=== PATIENT | female | born 1935 | race Caucasian/White ===

== ENCOUNTER 2018-11-20 19:02 | Emergency (ER) | payer OTHER, MEDICAID ==
[~2018-11-20] VITALS: Ht 165.1 cm; Wt 68.0 kg
--- NOTE | 2018-11-20 19:02 | NUR ---
PT [facility] BLS. TAKEN TO BED 3
[2018-11-20 19:06] VITALS: BP 145/67
--- NOTE | 2018-11-20 19:21 | NUR ---
Dr. Chaudhari examining patient.
--- NOTE | 2018-11-20 19:27 | NUR ---
HERE WITH A CHIEF COMPLAINT OF GENERALIZED ITCHING,RASH,FLUSHED SKIN AFTER TAKING NIACIN. SEEN AT [facility] FOR THE SAME REASON YESTERDAY.
[2018-11-20 20:20] VITALS: BP 151/64
--- NOTE | 2018-11-20 20:20 | NUR ---
Discharge papers given to pt. No SOB/Dypsnea. No redness. No anxiety. Discharged with vss. Instructed to f/u with PCP and when to return to ER. Pt verballized bundersanding of DC instructions. All questions answered.
== END 2018-11-20 20:20 | disposition home or self-care (01) ==
LOC: MED 19:02
DX: L25.8 Unspecified contact dermatitis due to other agents (principal); T46.7X5A Adverse effect of peripheral vasodilators, initial encounter; F41.9 Anxiety disorder, unspecified; Z90.89 Acquired absence of other organs; Z90.49 Acquired absence of other specified parts of digestive tract; Z90.710 Acquired absence of both cervix and uterus; Z95.0 Presence of cardiac pacemaker; Z88.1 Allergy status to other antibiotic agents; Z86.79 Personal history of other diseases of the circulatory system; Y92.89 Other specified places as the place of occurrence of the external cause
CPT/HCPCS: 99283

== ENCOUNTER 2018-11-23 12:09 | Emergency (ER) | payer OTHER, MEDICAID ==
[~2018-11-23] VITALS: Ht 165.1 cm; Wt 74.8 kg
--- NOTE | 2018-11-23 12:09 | NUR ---
Patient ambulated to bed 4. RN evaluating patient at bedside.
[2018-11-23 12:12] VITALS: BP 151/73
[2018-11-23] MEDS ORDERED: DILT120C91 PO (12:19)
--- NOTE | 2018-11-23 12:19 | NUR ---
83/F BIB SELF C/O FLUSHED AND GENERALIZED PRURITUS--EXACERBATED TODAY.MED HX: MCI, HTN, CVA, CHF, A-FIB, HYPERLIPIDEMIA, APPENDECTOMY, CHOLECYSTECTOMY,PACE MACKER. PATIENT STATES PAIN OF 0/10 AT THIS TIME. PATIENT POSITIONED FOR COMFORT; HOB ELEVATED; BEDRAILS UP X1; BED DOWN. ER MD MADE AWARE OF PT STATUS.
[2018-11-23] MEDS ORDERED: METO25TA PO (12:22)
[2018-11-23] MEDS ORDERED: WARF-18 PO (12:22)
[2018-11-23] MEDS ORDERED: DIGO0.122 PO (12:22)
--- NOTE | 2018-11-23 12:23 | NUR ---
Dr. Norton evaluating patient at bedside.
--- NOTE | 2018-11-23 13:01 | NUR ---
STOP USING NIACIN Patient discharged with v/s stable. Written and verbal after care instructions given and explained. Patient verbalized understanding. Ambulatory with steady gait. All questions addressed prior to discharge. Advised to follow up with PMD.
[2018-11-23 13:03] VITALS: BP 145/71
--- NOTE | 2018-11-23 13:03 | NUR ---
JAH [phone] WAS CALLED TO RETAIL SALES CLERK PT REQUESTED
== END 2018-11-23 13:05 | disposition home or self-care (01) ==
LOC: MED 12:09
DX: L53.9 Erythematous condition, unspecified (principal); I10 Essential (primary) hypertension; Z86.73 Personal history of transient ischemic attack (TIA), and cerebral infarction without residual deficits; Z95.0 Presence of cardiac pacemaker; Z88.2 Allergy status to sulfonamides; Z88.8 Allergy status to other drugs, medicaments and biological substances; Z79.899 Other long term (current) drug therapy; Z90.710 Acquired absence of both cervix and uterus; Z90.49 Acquired absence of other specified parts of digestive tract
CPT/HCPCS: 99283

== ENCOUNTER 2019-02-27 22:22 | Emergency (ER) | payer OTHER, MEDICAID ==
[~2019-02-27] VITALS: Ht 165.1 cm; Wt 70.3 kg
[~2019-02-27 22:22] MED LIST: DIGO0.122 PO; DILT120C91 PO; METO25TA PO; WARF-18 PO
--- NOTE | 2019-02-27 22:22 | NUR ---
PT AMBULATED TO LOBBY WITH VSS.
[2019-02-27 22:26] VITALS: BP 132/72
[2019-02-27] MEDS ORDERED: CALC-1018 PO (22:34)
[2019-02-27] MEDS ORDERED: APIX5TAB PO (22:35)
[2019-02-27] MEDS ORDERED: FLAX10002 PO (22:37)
[2019-02-27] MEDS ORDERED: FURO-572 PO (22:38)
[2019-02-27] MEDS ORDERED: IRBE300T56 PO (22:41)
[2019-02-27] MEDS ORDERED: [UNRECOGNIZED DRUG - CODE] PO (22:42)
--- NOTE | 2019-02-27 23:00 | NUR ---
Nhan hastings in ED - 02/27/19 at 2303 by [email or web address] PT AMBULATED TO BED 06
--- NOTE | 2019-02-27 23:02 | NUR ---
PT TAKEN TO BED 6
--- NOTE | 2019-02-27 23:12 | NUR ---
AMBULATES TO WITH STEADY GAIT IN UPRIGHT POSITION.
--- NOTE | 2019-02-27 23:30 | NUR ---
CHANGED PT INTO GOWN, PLACED ON MONITOR. PT HAS PACEMAKER AT 60 BPM. RESTING COMFORTABLY IN BED WITH VSS.
--- NOTE | 2019-02-27 23:52 | NUR ---
Dr. Cordero examining patient.
--- NOTE | 2019-02-27 23:52 | NUR ---
DR. COLORADO EVALUATING.
--- NOTE | 2019-02-28 | NUR ---
ATTEMPTED TO CALL [facility], NO ANSWER
[2019-02-28 00:56] LABS: BASOPHILS # (AUTO) 0.1 K/uL (0.00-0.22); BASOPHILS % (AUTO) 0.6 % (0.0-2.0); EOSINOPHILS # (AUTO) 0.2 K/uL (0-0.4); EOSINOPHILS % (AUTO) 1.7 % (0.0-4.0); HEMATOCRIT 46.1 % (36-48); HEMOGLOBIN 14.9 g/dL (12.0-16.0); LYMPHOCYTES # (AUTO) 1.4 K/uL (2.5-16.5); LYMPHOCYTES % (AUTO) 14.6 % (20.5-51.1); MEAN CORPUSCULAR HEMOGLOBIN 29 pg (27-31); MEAN CORPUSCULAR HGB CONC 32 g/dL (33-37); MEAN CORPUSCULAR VOLUME 88.7 fL (80-94); MONOCYTES # (AUTO) 0.5 K/uL (0.8-1.0); MONOCYTES % (AUTO) 5.8 % (1.7-9.3); NEUTROPHILS # (AUTO) 7.1 K/uL (1.8-7.7); NEUTROPHILS % (AUTO) 77.3 % (42.2-75.2); PLATELET COUNT (AUTO) 249 K/uL (140-450); RED CELL DISTRIBUTION WIDTH 15.5 % (11.6-13.7); WHITE BLOOD COUNT (AUTO) 9.2 K/uL (4.8-10.8)
--- NOTE | 2019-02-28 00:56 | NUR ---
XRAY AT BEDSIDE.
[2019-02-28 01:05] LABS: ANION GAP 11.7 (8-16); CARBON DIOXIDE 29.6 mmol/L (21-32); CHLORIDE 105 mmol/L (98-107); CREATININE 1.1 mg/dL (0.6-1.3); GLUCOSE 139 mg/dL (74-106); POTASSIUM 4.3 mmol/L (3.5-5.1); SODIUM SERUM 142 mmol/L (136-145); UREA NITROGEN, BLOOD 24 mg/dL (7-18)
[2019-02-28 01:12] LABS: ALBUMIN 3.3 g/dL (3.4-5.0); ASPARTATE AMINOTRANSFERASE 22 U/L (15-37); LIPASE 166 U/L (73-393); TOTAL BILIRUBIN 0.3 mg/dL (0.0-1.0)
--- NOTE | 2019-02-28 01:30 | NUR ---
PT RESTING COMFORTABLY WITH VSS. NO COMPLAINTS AT THIS TIME OTHER THAN FREQUENT BOWEL MOVEMENTS. DR. COLORADO MADE AWARE.
--- NOTE | 2019-02-28 01:30 | NUR ---
PT RESTING QUIETLY IN BED. HAS HAD TO USE RR SEVERAL TIMES. CONTINUES TO DENY PAIN/DISCOMFORT. NO COMPLAINTS AT THIS TIME.
--- NOTE | 2019-02-28 02:30 | NUR ---
STOOL COLLECTED AND SENT TO LAB.
[2019-02-28] MEDS ORDERED: metroNIDAZOLE 250 MG TAB PO ONE (03:00)
--- NOTE | 2019-02-28 03:02 | NUR ---
DR. COLORADO REEVALUATING.
--- NOTE | 2019-02-28 03:38 | NUR ---
SITTING COMFORTABLY IN CHAIR BY BED. BREATHING EVEN, UNLABORED. VSS. NO COMPLAINTS AT THIS TIME.
[2019-02-28 04:20] VITALS: BP 132/87
--- NOTE | 2019-02-28 04:23 | NUR ---
Patient discharged with v/s stable. Written and verbal after care instructions given and explained. Patient alert, oriented and verbalized understanding of instructions. Ambulatory with steady gait. All questions addressed prior to discharge. ID band removed. Patient advised to follow up with PMD. Rx of Flagyl given. Patient educated on indication of medication including possible reaction and side effects. Opportunity to ask questions provided and answered. Juice has been called for pt to return to [facility].
== END 2019-02-28 04:23 | disposition home or self-care (01) ==
LOC: MED 22:22
DX: A09 Infectious gastroenteritis and colitis, unspecified (principal); I10 Essential (primary) hypertension; Z95.0 Presence of cardiac pacemaker; Z86.73 Personal history of transient ischemic attack (TIA), and cerebral infarction without residual deficits; Z79.899 Other long term (current) drug therapy; Z88.2 Allergy status to sulfonamides; Z88.8 Allergy status to other drugs, medicaments and biological substances
CPT/HCPCS: 36415; 74018; 80053; 81002; 82272; 83690; 85025; 87045; 87070; 87427; 89055; 99284; Q0092

== ENCOUNTER 2022-05-22 14:27 | Inpatient (IN) | payer OTHER, MEDICAID ==
[~2022-05-22] VITALS: Ht 165.1 cm; Wt 70.3 kg
[~2022-05-22 14:27] MED LIST changes: +APIX5TAB PO; +CALC-1018 PO; +FLAX10002 PO; +FURO-572 PO; +IRBE300T26 PO; -WARF-18 PO; +[UNRECOGNIZED DRUG - CODE] PO
[2022-05-22 14:30] VITALS: BP 142/76
--- NOTE | 2022-05-22 14:36 | NUR ---
BIBA TO BED 10
[2022-05-22] MEDS ORDERED: ACETAMINOPHEN EXTRA STRENGTH 500 MG TAB PO ONE (14:40)
--- NOTE | 2022-05-22 14:53 | NUR ---
PT TAKEN TO CT VIA DONN
--- NOTE | 2022-05-22 15:07 | NUR ---
PT BROUGHT BACK VIA DONN
[2022-05-22 15:12] LABS: BASOPHILS % (AUTO) 0.7 % (0.0-2.0); EOSINOPHILS # (AUTO) 0.1 K/uL (0-0.4); EOSINOPHILS % (AUTO) 2.5 % (0.0-4.0); HEMATOCRIT 40.4 % (36-48); HEMOGLOBIN 13.2 g/dL (12.0-16.0); LYMPHOCYTES # (AUTO) 0.9 K/uL (2.5-16.5); LYMPHOCYTES % (AUTO) 19.8 % (20.5-51.1); MEAN CORPUSCULAR HEMOGLOBIN 30 pg (27-31); MEAN CORPUSCULAR HGB CONC 33 g/dL (33-37); MEAN CORPUSCULAR VOLUME 91.1 fL (80-94); MONOCYTES # (AUTO) 0.3 K/uL (0.8-1.0); MONOCYTES % (AUTO) 6.8 % (1.7-9.3); NEUTROPHILS # (AUTO) 3.3 K/uL (1.8-7.7); NEUTROPHILS % (AUTO) 70.2 % (42.2-75.2); PLATELET COUNT (AUTO) 203 K/uL (140-450); RED BLOOD CELL COUNT(AUTO) 4.44 MIL/uL (4.20-5.40); RED CELL DISTRIBUTION WIDTH 16.5 % (11.6-13.7); WHITE BLOOD COUNT (AUTO) 4.7 K/uL (4.8-10.8)
--- NOTE | 2022-05-22 15:15 | NUR ---
86/F LORENE FROM [facility] C/O DIZZINESS AND LIGHT HEADACHE ONSET TODAY. DENIES FALL OR INJURY TO HEAD. DENIES NVD. AAO4, AMBULATORY, VITALS STABLE. PMH: HTN, CHF, A FIB, HLD, PACE MAKER
[2022-05-22 15:44] LABS: APPEARANCE,URINE CLEAR (CLEAR); BILIRUBIN,URINE NEGATIVE (NEGATIVE); BLOOD, URINE NEGATIVE (NEGATIVE); COLOR,URINE YELLOW (YELLOW); LEUKOCYTE ESTERASE ,URINE NEGATIVE (NEGATIVE); NITRITE, URINE NEGATIVE (NEGATIVE); UGLUCOSE NEGATIVE (NEGATIVE)
[2022-05-22 16:07] LABS: ALBUMIN 3.2 g/dL (3.4-5.0); ANION GAP 8.1 (8-16); ASPARTATE AMINOTRANSFERASE 25 U/L (15-37); CARBON DIOXIDE 35.1 mmol/L (21-32); CHLORIDE 105 mmol/L (98-107); CREATININE 1.3 mg/dL (0.6-1.3); GLUCOSE 139 mg/dL (74-106); MAGNESIUM 1.8 mg/dL (1.8-2.4); POTASSIUM 3.2 mmol/L (3.5-5.1); SODIUM SERUM 145 mmol/L (136-145); TOTAL BILIRUBIN 0.4 mg/dL (0.0-1.0); UREA NITROGEN, BLOOD 23 mg/dL (7-18)
--- NOTE | 2022-05-22 16:55 | NUR ---
RANDELL COLLECTED AND SENT TO LAB
--- NOTE | 2022-05-22 19:10 | NUR ---
CALLED [facility] FOR PT'S MED LIST BUT FACILITY NOT ANSWERING. NO MED LIST PROVIDED UPON PT ARRIVAL TO ER.
--- NOTE | 2022-05-22 19:20 | NUR ---
GAVE REPORT TO JORGE HIGGINS.
[2022-05-22 19:36] LABS: ANION GAP 10.1 (8-16); CARBON DIOXIDE 33.4 mmol/L (21-32); CHLORIDE 104 mmol/L (98-107); CREATININE 1.2 mg/dL (0.6-1.3); GLUCOSE 104 mg/dL (74-106); POTASSIUM 3.5 mmol/L (3.5-5.1); SODIUM SERUM 144 mmol/L (136-145); UREA NITROGEN, BLOOD 22 mg/dL (7-18)
--- NOTE | 2022-05-22 20:40 | NUR ---
Patient will be admitted to care of Telemetry Nurse Maryam. Admited to Telemetry. Will go to room 126B. Belongings list completed. Report given to Telemetry Nurse Maryam. Telemetry Nurse Maryam verbalized understanding of report, no further questions.
--- NOTE | 2022-05-22 21:30 | NUR ---
PT RECEIVED FROM ED A/OX3 ABLE TO MAKE NEEDS KNOWN DENIES PAIN AMBULATED TO BR ORIENTED TO ROOM AND PLAN OF CARE CALL LIGHT IN REACH WILL CONTINUE TO MONITOR AND ASSESS
--- NOTE | 2022-05-22 23:23 | NUR ---
TROPONIN 80 AMD TRENDING DOWN NO COMPLAINTS OF CHEST PAIN
[2022-05-23] VITALS: BP 117/83
[2022-05-23 04:00] VITALS: BP 140/77
[2022-05-23 05:48] LABS: BASOPHILS % (AUTO) 0.6 % (0.0-2.0); EOSINOPHILS # (AUTO) 0.2 K/uL (0-0.4); HEMATOCRIT 37.8 % (36-48); HEMOGLOBIN 12.4 g/dL (12.0-16.0); LYMPHOCYTES # (AUTO) 1.3 K/uL (2.5-16.5); LYMPHOCYTES % (AUTO) 25.2 % (20.5-51.1); MEAN CORPUSCULAR HEMOGLOBIN 30 pg (27-31); MEAN CORPUSCULAR HGB CONC 33 g/dL (33-37); MEAN CORPUSCULAR VOLUME 91.5 fL (80-94); MONOCYTES # (AUTO) 0.5 K/uL (0.8-1.0); MONOCYTES % (AUTO) 9.3 % (1.7-9.3); NEUTROPHILS # (AUTO) 3.1 K/uL (1.8-7.7); NEUTROPHILS % (AUTO) 61.9 % (42.2-75.2); PLATELET COUNT (AUTO) 183 K/uL (140-450); RED BLOOD CELL COUNT(AUTO) 4.14 MIL/uL (4.20-5.40); RED CELL DISTRIBUTION WIDTH 16.5 % (11.6-13.7); WHITE BLOOD COUNT (AUTO) 5.1 K/uL (4.8-10.8)
--- NOTE | 2022-05-23 07:30 | NUR ---
RECEIVED REPORT FROM NIGHTSHIFT NURSE. PT A/O X2. REMINDED PT THAT PT IS IN THE HOSPITAL. NO SOB OR RESPIRATORY DISTRESS. ON RA. DENIES CHEST PAIN. TELE, PACED. CARDIAC DIET. RAC #20 SL. NEEDS ALL MET AT THIS TIME. ALL SAFETY MEASURES IN PLACE.
[2022-05-23 08:00] VITALS: BP 164/83
--- NOTE | 2022-05-23 08:50 | NUR ---
PATIENT HAS BEEN SCREENED AND CATEGORIZED MODERATE NUTRITION RISK. PATIENT WILL BE SEEN WITHIN 3-5 DAYS OF ADMISSION. REVIEWED BY SHAYY MCCAULEY RD
[2022-05-23] MEDS ORDERED: ACETAMINOPHEN 325 MG TAB PO PRN (09:10)
[2022-05-23] MEDS ORDERED: MAG SULF 2000 MG/WATER PREMIX 50 ML IV PRN (09:10)
[2022-05-23] MEDS ORDERED: NITROGLYCERIN 0.4 MG TAB SL PRN (09:10)
[2022-05-23] MEDS ORDERED: POTASSIUM CHLORIDE 10 MEQ TABER PO PRN (09:10)
[2022-05-23] MEDS ORDERED: HYDROcodone/APAP 7.5/325 MG 1 TAB PO PRN (09:10)
[2022-05-23] MEDS ORDERED: ONDANSETRON 4 MG/2 ML VIAL IVP PRN (09:10)
[2022-05-23 12:00] VITALS: BP 156/89
[2022-05-23 12:14] LABS: PROTHROMBIN TIME 10.7 secs (10.8-13.4)
[2022-05-23 12:42] LABS: CHOL/HDL RATIO 2.4 (1-4.5); THYROID STIMULATING HORMONE 1.78 uIU/mL (0.34-3.74)
--- NOTE | 2022-05-23 15:03 | NUR ---
DC PLANNING ASSESSMENT COMPLETE SEE ASSESSMENT FOR DETAILS TREMAINE REPORTS TENTATIVE DC PLAN IS FOR PT TO RETURN TO MR WHEN MEDICALLY STABLE LONG PT DOES NOT REQUIRE MEDICAL NEEDS THAT CAN NOT BE ACCOMMODATED AT FACILITY. Addendum: 05/23/22 at 1504 by Eugenio Carrillo SS Amended: Links added.
[2022-05-23 16:00] VITALS: BP 152/97
--- NOTE | 2022-05-23 18:30 | NUR ---
PT GETTING OUT OF ROOM. REDIRECTED PT TO ROOM. REMINDED PT AGAIN PT IS AT [facility]. NO SOB OR RESPIRATORY DISTRESS. ON RA. PROVIDED WARM BLANKET TO PT. ALL NEEDS MET. ALL SAFETY MEASURES IN PLACE.
--- NOTE | 2022-05-23 19:03 | NUR ---
BEDSIDE REPORT GIVEN TO NIGHTSHIFT NURSETOÑO FOR CONTINUITY OF CARE.
--- NOTE | 2022-05-23 19:04 | NUR ---
RECEIVED REPORT FROM DAY SHIFT NURSE NADINE FOR CONTINUITY OF CARE. PT AWAKE, SITTING AT BEDSIDE CHAIR. RESPIRATIONS EVEN AND UNLABORED ON RA. ON SUPERVISOR HOME RESTORATION SERVICE. NO IV IN PLACE, WILL ATTEMPT TO INSERT NEW IV LINE. INITIAL ASSESSMENT DONE. POC DISCUSSED WITH PT AND GISELA FOY. CALL LIGHT WITHIN REACH. SAFETY PRECAUTIONS IN PLACE.
[2022-05-23 20:00] VITALS: BP 152/77
--- NOTE | 2022-05-23 20:00 | NUR ---
Patient's Plan of Care was discussed and reviewed with CUSTOMER SUPPLY CHAIN ANALYST: Chris Max
[2022-05-23] MEDS: DOCUSATE SODIUM 100 MG GELCAP PO SCH (20:26)
[2022-05-23] MEDS: APIXABAN 2.5 MG TAB PO SCH (20:28)
--- NOTE | 2022-05-23 20:33 | NUR ---
ADMINISTERED DUE MEDS. PT TOLERATED WELL.
[2022-05-23] MEDS ORDERED: METOPROLOL 25 MG TAB PO SCH (21:00)
--- NOTE | 2022-05-23 22:55 | NUR ---
RECEIVED CALL FROM LAB. TROPONIN 97. DR ALEMAN MADE AWARE. AWAITING FOR RESPONSE.
[2022-05-24] VITALS: BP 151/73
[2022-05-24 04:00] VITALS: BP 150/79
--- NOTE | 2022-05-24 04:09 | NUR ---
V/S TAKEN. PT SITTING AT BEDSIDE CHAIR. NO COMPLAINTS OF PAIN. NO SOB. NO DISTRESS NOTED. PT ASKING ABOUT HER WALKER AND 'S APPT. PT RE-ORIENTED TO TIME AND PLACE.
[2022-05-24 05:39] LABS: BASOPHILS % (AUTO) 0.7 % (0.0-2.0); EOSINOPHILS # (AUTO) 0.1 K/uL (0-0.4); EOSINOPHILS % (AUTO) 2.6 % (0.0-4.0); HEMATOCRIT 39.2 % (36-48); HEMOGLOBIN 13.2 g/dL (12.0-16.0); LYMPHOCYTES # (AUTO) 1.1 K/uL (2.5-16.5); LYMPHOCYTES % (AUTO) 19.7 % (20.5-51.1); MEAN CORPUSCULAR HEMOGLOBIN 30 pg (27-31); MEAN CORPUSCULAR HGB CONC 34 g/dL (33-37); MEAN CORPUSCULAR VOLUME 88.9 fL (80-94); MONOCYTES # (AUTO) 0.5 K/uL (0.8-1.0); MONOCYTES % (AUTO) 8.4 % (1.7-9.3); NEUTROPHILS # (AUTO) 3.9 K/uL (1.8-7.7); NEUTROPHILS % (AUTO) 68.6 % (42.2-75.2); PLATELET COUNT (AUTO) 201 K/uL (140-450); RED BLOOD CELL COUNT(AUTO) 4.41 MIL/uL (4.20-5.40); RED CELL DISTRIBUTION WIDTH 16.6 % (11.6-13.7); WHITE BLOOD COUNT (AUTO) 5.7 K/uL (4.8-10.8)
[2022-05-24 06:01] LABS: ANION GAP 10.9 (8-16); CARBON DIOXIDE 30.6 mmol/L (21-32); CHLORIDE 103 mmol/L (98-107); GLUCOSE 107 mg/dL (74-106); POTASSIUM 3.5 mmol/L (3.5-5.1); SODIUM SERUM 141 mmol/L (136-145); UREA NITROGEN, BLOOD 22 mg/dL (7-18)
[2022-05-24 06:15] LABS: MAGNESIUM 1.8 mg/dL (1.8-2.4); PHOSPHORUS 3.5 mg/dL (2.5-4.9)
--- NOTE | 2022-05-24 07:11 | NUR ---
ENDORSED PT TO DAY SHIFT NURSE NIGEL FOR CONTINUITY OF CARE. ALL NEEDS MET THROUGHOUT SHIFT. PT IS STABLE.
--- NOTE | 2022-05-24 07:15 | NUR ---
RECEIVED BEDSIDE REPORT FROM [facility] FOR CONTINUITY OF CARE. INITIAL ASSESSMENT DONE. IVF SITE INTACT. WILL CONTINUE TO MONITOR.
[2022-05-24 08:00] VITALS: BP 152/70
--- NOTE | 2022-05-24 08:00 | NUR ---
Patient's Plan of Care was discussed and reviewed with FINANCE PROFESSIONAL: NIGEL RAPP
[2022-05-24] MEDS: DOCUSATE SODIUM 100 MG GELCAP PO SCH (08:21)
--- NOTE | 2022-05-24 08:21 | NUR ---
SCHEDULED MEDICATIONS GIVEN. TOLERATING WELL.
[2022-05-24] MEDS: APIXABAN 2.5 MG TAB PO SCH (08:22)
[2022-05-24] MEDS ORDERED: LOSARTAN 50 MG TAB PO SCH (09:00)
[2022-05-24] MEDS ORDERED: IRBESARTAN 150 MG PO SCH (09:00)
[2022-05-24] MEDS ORDERED: DILTIAZEM HCL 120 MG PO SCH (09:00)
[2022-05-24] MEDS ORDERED: DIGOXIN 0.125 MG TAB PO SCH (09:00)
[2022-05-24] MEDS ORDERED: VITAMIN D3 PO SCH (09:00)
[2022-05-24] MEDS ORDERED: ASPIRIN 81 MG TAB.CHEW PO SCH (09:00)
[2022-05-24] MEDS ORDERED: MAGNESIUM CHLORIDE 64 MG TABEC PO SCH (09:00)
[2022-05-24] MEDS ORDERED: MAGNESIUM CHLORIDE PO SCH (09:00)
[2022-05-24] MEDS ORDERED: CALCIUM CARBONATE PO SCH (09:00)
[2022-05-24] MEDS ORDERED: CALCIUM CARB/VIT-D 500 MG/200 IU 1 TAB PO SCH (09:00)
[2022-05-24] MEDS ORDERED: DILTIAZEM 120 MG CAPER PO SCH (09:00)
[2022-05-24] MEDS ORDERED: PANTOPRAZOLE 40 MG INJ VIAL IVP SCH (09:00)
--- NOTE | 2022-05-24 11:45 | NUR ---
PT DAUGHTER AGGIE AT BEDSIDE ASKING IF PT WILL BE DISCHARGE TODAY. NOTIFIED DR. ALEMAN, PER IF PT IS CLEARED WITH CARDIO. DR. BRADFORD NOTIFIED AWAITING FOR RESPONSE.
[2022-05-24 12:00] VITALS: BP 130/61
--- NOTE | 2022-05-24 12:12 | NUR ---
RECEIVED CALLED FROM DR. BRADFORD, PT IS CLEARED FOR DISCHARGED. DR. ALEMAN NOTIFIED, AWAITING FOR RESPONSE.
--- NOTE | 2022-05-24 12:48 | NUR ---
RECEIVED NEW ORDER FROM DR. ALEMAN, PT CLEARED FOR DISCHARGE. CALLED AGGIE DAUGHTER, APPRECIATED THE CALL AND ETA IN 30 MIN.
--- NOTE | 2022-05-24 13:40 | NUR ---
PT LEFT, DISCHARGE TO [facility]. TRANSPORTED BY PRIVATE CAR, ACCOMPANIED BY HER DAUGHTER. ALERT AND ORIENTED WITH FORGETFUL. SKIN INTACT. ID BAND, IV REMOVED, TELE BOX REMOVED. ALL PERSONAL BELONGINGS TAKEN. REMAINS STABLE.
[2022-05-25] MEDS ORDERED: FUROSEMIDE 20 MG TAB PO SCH (09:00)
== END 2022-05-24 14:22 | disposition home or self-care (01) | DRG 640 ==
LOC: MED 14:27 → MTU 18:19 → MMU 18:42 → MTU 05-23 01:22
DX: E87.6 Hypokalemia (principal); I50.43 Acute on chronic combined systolic (congestive) and diastolic (congestive) heart failure; I24.9 Acute ischemic heart disease, unspecified; E44.1 Mild protein-calorie malnutrition; I25.10 Atherosclerotic heart disease of native coronary artery without angina pectoris; I11.0 Hypertensive heart disease with heart failure; E78.5 Hyperlipidemia, unspecified; I48.91 Unspecified atrial fibrillation; E86.0 Dehydration; Z20.822 Contact with and (suspected) exposure to COVID-19; Z68.25 Body mass index [BMI] 25.0-25.9, adult; Z86.73 Personal history of transient ischemic attack (TIA), and cerebral infarction without residual deficits; Z79.01 Long term (current) use of anticoagulants; Z88.2 Allergy status to sulfonamides; Z88.8 Allergy status to other drugs, medicaments and biological substances
CPT/HCPCS: 36415; 70450; 71045; 80048; 80053; 80162; 81003; 82140; 82150; 83036; 83605; 83690; 83735; 83880; 84100; 84439; 84443; 84484; 85025; 85610; 85730; 87040; 87081; 87086; 93005; 96372; 97116; 99291; 99292; C9113; J1644; Q0092

== ENCOUNTER 2022-11-17 18:55 | Emergency (ER) | payer OTHER, MEDICAID ==
[~2022-11-17] VITALS: Ht 165.1 cm; Wt 72.6 kg
[2022-11-17 19:01] VITALS: BP 156/83; PULSE 71; RESP 16; TEMP 97.1; O2SAT 95
--- NOTE | 2022-11-17 19:18 | NUR ---
PATIENT BIBA TO [facility]
--- NOTE | 2022-11-17 20:36 | NUR ---
Patient being evaluated by physician at bedside.
[2022-11-17 21:09] LABS: BASOPHILS # (AUTO) 0.1 K/uL (0.00-0.22); BASOPHILS % (AUTO) 1.2 % (0.0-2.0); EOSINOPHILS # (AUTO) 0.1 K/uL (0-0.4); EOSINOPHILS % (AUTO) 3.2 % (0.0-4.0); HEMOGLOBIN 13.6 g/dL (12.0-16.0); LYMPHOCYTES % (AUTO) 24.6 % (20.5-51.1); MEAN CORPUSCULAR HEMOGLOBIN 31 pg (27-31); MEAN CORPUSCULAR HGB CONC 33 g/dL (33-37); MEAN CORPUSCULAR VOLUME 92.5 fL (80-94); MONOCYTES # (AUTO) 0.3 K/uL (0.8-1.0); MONOCYTES % (AUTO) 6.9 % (1.7-9.3); NEUTROPHILS # (AUTO) 2.7 K/uL (1.8-7.7); NEUTROPHILS % (AUTO) 64.1 % (42.2-75.2); PLATELET COUNT (AUTO) 232 K/uL (140-450); RED BLOOD CELL COUNT(AUTO) 4.43 MIL/uL (4.20-5.40); RED CELL DISTRIBUTION WIDTH 17.1 % (11.6-13.7); WHITE BLOOD COUNT (AUTO) 4.3 K/uL (4.8-10.8)
[2022-11-17 21:37] LABS: ALBUMIN 3.1 g/dL (3.4-5.0); ANION GAP 11.4 (8-16); ASPARTATE AMINOTRANSFERASE 24 U/L (15-37); CARBON DIOXIDE 31.4 mmol/L (21-32); CHLORIDE 101 mmol/L (98-107); CREATININE 0.9 mg/dL (0.6-1.3); GLUCOSE 104 mg/dL (74-106); LIPASE 100 U/L (73-393); POTASSIUM 3.8 mmol/L (3.5-5.1); SODIUM SERUM 140 mmol/L (136-145); TOTAL BILIRUBIN 0.7 mg/dL (0.0-1.0); UREA NITROGEN, BLOOD 14 mg/dL (7-18)
--- NOTE | 2022-11-17 21:50 | NUR ---
pt resting on bed. a/ox3. not in distress. on monitor. call light within reach and oriented. bed locked to lowest position. placed on moderate high back rest
--- NOTE | 2022-11-17 21:50 | NUR ---
reports on blood thinner: angela
[2022-11-17] MEDS ORDERED: SODIUM PHOSPHATE 118 ML ENEM RC ONE (22:10)
--- NOTE | 2022-11-17 23:00 | NUR ---
pt reports that she is feeling better with no abdominal discomfort
--- NOTE | 2022-11-17 23:00 | NUR ---
bowel movement noted. pt defecated. bedside care done. change diaper, linen, under pad
[2022-11-17] MEDS ORDERED: SENN-72 PO (23:28)
[2022-11-17] MEDS ORDERED: MIRABULK PO (23:28)
--- NOTE | 2022-11-18 00:15 | NUR ---
tried to call [facility] [phone] but no one is answering.
[2022-11-18 00:30] VITALS: BP 150/80; PULSE 70; RESP 16; TEMP 97.1; O2SAT 98
--- NOTE | 2022-11-18 00:30 | NUR ---
Patient discharged with v/s stable. Written and verbal after care instructions given and explained. Patient alert, oriented and verbalized understanding of instructions. Wheel Chair Assisted with to retirement. All questions addressed prior to discharge. ID band removed. Patient advised to follow up with PMD. Rx given to pt. Patient educated on indication of medication including possible reaction and side effects. Opportunity to ask questions provided and answered.
== END 2022-11-18 00:30 | disposition home or self-care (01) ==
LOC: MED 18:55
DX: K59.00 Constipation, unspecified (principal); I48.91 Unspecified atrial fibrillation; I11.0 Hypertensive heart disease with heart failure; I50.9 Heart failure, unspecified; E78.5 Hyperlipidemia, unspecified; Z86.73 Personal history of transient ischemic attack (TIA), and cerebral infarction without residual deficits; Z95.0 Presence of cardiac pacemaker; Z98.890 Other specified postprocedural states; Z79.899 Other long term (current) drug therapy; Z79.01 Long term (current) use of anticoagulants; Z88.8 Allergy status to other drugs, medicaments and biological substances; Z88.2 Allergy status to sulfonamides
CPT/HCPCS: 36415; 80053; 83690; 85025; 99284

== ENCOUNTER 2022-11-20 02:39 | Observation (INO) | payer OTHER, MEDICAID ==
[~2022-11-20] VITALS: Ht 167.6 cm; Wt 72.6 kg
[~2022-11-20 02:39] MED LIST changes: +MIRABULK PO; +SENN-72 PO
[2022-11-20 02:49] VITALS: BP 169/69; PULSE 86; RESP 18; TEMP 98.4
[2022-11-20 02:56] LABS: BASOPHILS % (AUTO) 1.1 % (0.0-2.0); EOSINOPHILS # (AUTO) 0.2 K/uL (0-0.4); EOSINOPHILS % (AUTO) 4.1 % (0.0-4.0); HEMATOCRIT 39.7 % (36-48); HEMOGLOBIN 13.1 g/dL (12.0-16.0); LYMPHOCYTES # (AUTO) 1.1 K/uL (2.5-16.5); LYMPHOCYTES % (AUTO) 27.6 % (20.5-51.1); MEAN CORPUSCULAR HEMOGLOBIN 31 pg (27-31); MEAN CORPUSCULAR HGB CONC 33 g/dL (33-37); MEAN CORPUSCULAR VOLUME 92.5 fL (80-94); MONOCYTES # (AUTO) 0.4 K/uL (0.8-1.0); NEUTROPHILS # (AUTO) 2.3 K/uL (1.8-7.7); NEUTROPHILS % (AUTO) 57.2 % (42.2-75.2); PLATELET COUNT (AUTO) 228 K/uL (140-450); RED CELL DISTRIBUTION WIDTH 17.3 % (11.6-13.7)
[2022-11-20 03:18] LABS: ALANINE AMINOTRANSFERASE 11 U/L (12-78); ALBUMIN 2.9 g/dL (3.4-5.0); ALKALINE PHOSPHATASE 58 U/L (50-136); ANION GAP 8.3 (8-16); ASPARTATE AMINOTRANSFERASE 25 U/L (15-37); CALCIUM 8.6 mg/dL (8.5-10.1); CHLORIDE 102 mmol/L (98-107); GLUCOSE 92 mg/dL (74-106); LIPASE 166 U/L (73-393); POTASSIUM 3.3 mmol/L (3.5-5.1); SODIUM SERUM 141 mmol/L (136-145); TOTAL BILIRUBIN 0.5 mg/dL (0.0-1.0); TOTAL PROTEIN, SERUM 7.2 g/dL (6.4-8.2); UREA NITROGEN, BLOOD 19 mg/dL (7-18)
[2022-11-20] MEDS ORDERED: hydrALAZINE 20 MG/ML VIAL IVP ONE (07:00)
[2022-11-20] MEDS ORDERED: ASPIRIN 325 MG TAB PO ONE (07:20)
[2022-11-20] MEDS ORDERED: SERT-514 PO (11:31)
[2022-11-20] MEDS ORDERED: ASCO-549 PO (11:31)
[2022-11-20] MEDS ORDERED: METO-251 PO (11:31)
[2022-11-20] MEDS ORDERED: ACET-10509 PO (11:31)
[2022-11-20] MEDS ORDERED: MEMA10TA56 PO (11:31)
[2022-11-20] MEDS ORDERED: [UNRECOGNIZED DRUG - CODE] PO (11:31)
[2022-11-20] MEDS ORDERED: DONE10TA37 PO (11:31)
[2022-11-20] MEDS ORDERED: [UNRECOGNIZED DRUG - CODE] PO (11:31)
[2022-11-20] MEDS ORDERED: [UNRECOGNIZED DRUG - CODE] PO (11:31)
[2022-11-20 17:05] VITALS: PULSE 74; RESP 18; O2SAT 94
[2022-11-20] MEDS ORDERED: POTASSIUM CHLORIDE 10 MEQ TABER PO PRN (18:50)
[2022-11-20 20:00] VITALS: BP 166/54; PULSE 69; RESP 17; TEMP 97.9; O2SAT 97
[2022-11-20] MEDS: hydrALAZINE 25 MG TAB PO PRN (20:26)
[2022-11-20] MEDS: DOCUSATE SODIUM 250 MG GELCAP PO SCH (20:27)
[2022-11-20] MEDS: APIXABAN 2.5 MG TAB PO SCH (20:27)
[2022-11-20] MEDS ORDERED: METOPROLOL 25 MG TAB PO SCH (21:00)
[2022-11-21 04:00] VITALS: BP 161/49; PULSE 78; RESP 18; TEMP 97.4; O2SAT 96
[2022-11-21] MEDS: hydrALAZINE 25 MG TAB PO PRN (04:27)
[2022-11-21 05:36] VITALS: BP 153/62
[2022-11-21 08:00] VITALS: PULSE 95; RESP 16; O2SAT 96
[2022-11-21] MEDS ORDERED: LOSA50TA66 PO (08:48)
[2022-11-21] MEDS ORDERED: DILTIAZEM 120 MG CAPER PO SCH (09:00)
[2022-11-21] MEDS ORDERED: LOSARTAN 50 MG TAB PO SCH (09:00)
[2022-11-21] MEDS ORDERED: ATORVASTATIN 20 MG TAB PO SCH ×2 (09:00)
[2022-11-21] MEDS ORDERED: ASPIRIN 81 MG TAB.CHEW PO SCH (09:00)
[2022-11-21] MEDS ORDERED: DIGOXIN 0.125 MG TAB PO SCH (09:00)
[2022-11-21] MEDS ORDERED: PANTOPRAZOLE 40 MG TABEC PO SCH (09:00)
[2022-11-21] MEDS ORDERED: SENNA 8.6 MG TAB PO SCH (09:00)
[2022-11-21] MEDS ORDERED: lisinopriL 10 MG TAB PO SCH (09:00)
[2022-11-21] MEDS: DOCUSATE SODIUM 250 MG GELCAP PO SCH (09:17)
[2022-11-21] MEDS: APIXABAN 2.5 MG TAB PO SCH (09:24)
[2022-11-21 12:00] VITALS: BP 145/97; PULSE 95; RESP 16; TEMP 97.9; O2SAT 96
[2022-11-21 14:29] VITALS: BP 145/97; PULSE 95; RESP 16; TEMP 97.9
== END 2022-11-21 16:23 ==
LOC: MED 02:39 → MMU 10:59 → MTU 16:19
PROVIDERS: ADMIT Student in an Organized Health Care Education/Training Program; ATTEND Student in an Organized Health Care Education/Training Program
DX: I21.A1 Myocardial infarction type 2 (principal); I16.0 Hypertensive urgency; I16.1 Hypertensive emergency; D72.829 Elevated white blood cell count, unspecified; E87.6 Hypokalemia; I11.0 Hypertensive heart disease with heart failure; I50.32 Chronic diastolic (congestive) heart failure; I77.819 Aortic ectasia, unspecified site; I48.91 Unspecified atrial fibrillation; E78.5 Hyperlipidemia, unspecified; R10.13 Epigastric pain; K59.00 Constipation, unspecified; G30.9 Alzheimer's disease, unspecified; F02.80 Dementia in other diseases classified elsewhere, unspecified severity, without behavioral disturbance, psychotic disturbance, mood disturbance, and anxiety; Z95.0 Presence of cardiac pacemaker; Z86.73 Personal history of transient ischemic attack (TIA), and cerebral infarction without residual deficits; Z79.899 Other long term (current) drug therapy
CPT/HCPCS: 36415; 74176; 80053; 83690; 84484; 85025; 87081; 96374; 99285; G0378; J0360

== ENCOUNTER 2023-03-04 22:52 | Inpatient (IN) | payer OTHER, MEDICAID ==
[~2023-03-04] VITALS: Ht 165.1 cm; Wt 60.8 kg
[~2023-03-04 22:52] MED LIST changes: +ACET-10509 PO; +ASCO-549 PO; +DONE10TA37 PO; -IRBE300T26 PO; +LOSA50TA66 PO; +MEMA10TA56 PO; -METO25TA PO; +SERT-514 PO; +[UNRECOGNIZED DRUG - CODE] PO; +[UNRECOGNIZED DRUG - CODE] PO
[2023-03-04 22:55] VITALS: BP 200/90; PULSE 79; RESP 14; TEMP 98.3; O2SAT 94
[2023-03-04 23:31] LABS: BASOPHILS % (AUTO) 0.5 % (0.0-2.0); EOSINOPHILS # (AUTO) 0.1 K/uL (0-0.4); EOSINOPHILS % (AUTO) 1.5 % (0.0-4.0); HEMATOCRIT 37.9 % (36-48); HEMOGLOBIN 12.4 g/dL (12.0-16.0); LYMPHOCYTES # (AUTO) 0.6 K/uL (2.5-16.5); LYMPHOCYTES % (AUTO) 7.7 % (20.5-51.1); MEAN CORPUSCULAR HEMOGLOBIN 31 pg (27-31); MEAN CORPUSCULAR HGB CONC 33 g/dL (33-37); MEAN CORPUSCULAR VOLUME 93.2 fL (80-94); MONOCYTES # (AUTO) 0.5 K/uL (0.8-1.0); MONOCYTES % (AUTO) 6.6 % (1.7-9.3); NEUTROPHILS # (AUTO) 6.1 K/uL (1.8-7.7); NEUTROPHILS % (AUTO) 83.7 % (42.2-75.2); PLATELET COUNT (AUTO) 191 K/uL (140-450); RED BLOOD CELL COUNT(AUTO) 4.06 MIL/uL (4.20-5.40); RED CELL DISTRIBUTION WIDTH 15.2 % (11.6-13.7); WHITE BLOOD COUNT (AUTO) 7.2 K/uL (4.8-10.8)
[2023-03-04 23:50] LABS: ALKALINE PHOSPHATASE 67 U/L (50-136); ANION GAP 7.5 (8-16); ASPARTATE AMINOTRANSFERASE 25 U/L (15-37); CALCIUM 8.4 mg/dL (8.5-10.1); CARBON DIOXIDE 33.3 mmol/L (21-32); CHLORIDE 104 mmol/L (98-107); GLUCOSE 127 mg/dL (74-106); POTASSIUM 3.8 mmol/L (3.5-5.1); SODIUM SERUM 141 mmol/L (136-145); TOTAL BILIRUBIN 0.4 mg/dL (0.0-1.0); TOTAL PROTEIN, SERUM 7.7 g/dL (6.4-8.2); UREA NITROGEN, BLOOD 21 mg/dL (7-18)
[2023-03-04 23:53] LABS: LACTIC ACID 0.9 mmol/L (0.4-2.0)
[2023-03-05] VITALS (7 sets, daily range): BP systolic 134–140; BP diastolic 52–63; PULSE 69–90; RESP 17–18; TEMP 97.6–98.4; O2SAT 94–100
[2023-03-05] LABS: APPEARANCE,URINE CLEAR (CLEAR); BILIRUBIN,URINE NEGATIVE (NEGATIVE); BLOOD, URINE TRACE-I (NEGATIVE); COLOR,URINE YELLOW (YELLOW); LEUKOCYTE ESTERASE ,URINE NEGATIVE (NEGATIVE); NITRITE, URINE NEGATIVE (NEGATIVE); PH,URINE 7.5 (5.0-9.0); PROTEIN,URINE TRACE (NEGATIVE); UGLUCOSE NEGATIVE (NEGATIVE); UROBILINOGEN,URINE 0.2 EU/dL (0.2 - 1)
[2023-03-05 00:05] LABS: ALANINE AMINOTRANSFERASE 19 U/L (12-78)
[2023-03-05 00:07] LABS: BACTERIA,URINE >30 (MANY) /HPF (None Seen); MUCUS,URINE 1+ /LPF (None Seen); SQUAMOUS EPITHELIAL CELL,UR 0-3 (FEW) /LPF (0-3 (FEW))
[2023-03-05] MEDS ORDERED: MEROPENEM 1,000 MG in NACL 0.9% 50 ML IV ONE (01:15)
[2023-03-05] MEDS ORDERED: MEROPENEM 1,000 MG VIAL IV ONE (01:50)
[2023-03-05] MEDS ORDERED: cefTRIAXone 1,000 MG VIAL ONE (01:51)
[2023-03-05] MEDS ORDERED: HYDROcodone/APAP 7.5/325 MG 1 TAB PO PRN (04:10)
[2023-03-05] MEDS ORDERED: guaiFENesin DM 200/20 MG-10 ML 10 ML UDC PO PRN (04:10)
[2023-03-05] MEDS ORDERED: POTASSIUM CHLORIDE 10 MEQ TABER PO PRN (04:10)
[2023-03-05] MEDS ORDERED: ZOLPIDEM 5 MG TAB PO PRN (04:10)
[2023-03-05] MEDS ORDERED: ONDANSETRON 4 MG/2 ML VIAL IM/IVP PRN (04:10)
[2023-03-05] MEDS ORDERED: ACETAMINOPHEN 325 MG TAB PO PRN (04:10)
[2023-03-05] MEDS ORDERED: DOCUSATE SODIUM 100 MG GELCAP PO PRN (04:10)
[2023-03-05 06:52] LABS: BASOPHILS % (AUTO) 0.4 % (0.0-2.0); EOSINOPHILS % (AUTO) 0.4 % (0.0-4.0); HEMATOCRIT 39.6 % (36-48); LYMPHOCYTES # (AUTO) 0.6 K/uL (2.5-16.5); LYMPHOCYTES % (AUTO) 8.2 % (20.5-51.1); MEAN CORPUSCULAR HEMOGLOBIN 31 pg (27-31); MEAN CORPUSCULAR HGB CONC 33 g/dL (33-37); MEAN CORPUSCULAR VOLUME 93.4 fL (80-94); MONOCYTES # (AUTO) 0.6 K/uL (0.8-1.0); MONOCYTES % (AUTO) 8.4 % (1.7-9.3); NEUTROPHILS # (AUTO) 6.1 K/uL (1.8-7.7); NEUTROPHILS % (AUTO) 82.6 % (42.2-75.2); PLATELET COUNT (AUTO) 211 K/uL (140-450); RED BLOOD CELL COUNT(AUTO) 4.24 MIL/uL (4.20-5.40); RED CELL DISTRIBUTION WIDTH 15.2 % (11.6-13.7); WHITE BLOOD COUNT (AUTO) 7.4 K/uL (4.8-10.8)
[2023-03-05 07:21] LABS: ALANINE AMINOTRANSFERASE 12 U/L (12-78); ALBUMIN 3.1 g/dL (3.4-5.0); ALKALINE PHOSPHATASE 71 U/L (50-136); ANION GAP 8.8 (8-16); ASPARTATE AMINOTRANSFERASE 26 U/L (15-37); CALCIUM 8.3 mg/dL (8.5-10.1); CARBON DIOXIDE 33.8 mmol/L (21-32); CHLORIDE 102 mmol/L (98-107); GLUCOSE 127 mg/dL (74-106); POTASSIUM 3.6 mmol/L (3.5-5.1); SODIUM SERUM 141 mmol/L (136-145); TOTAL BILIRUBIN 0.5 mg/dL (0.0-1.0); TOTAL PROTEIN, SERUM 8.2 g/dL (6.4-8.2); UREA NITROGEN, BLOOD 17 mg/dL (7-18)
[2023-03-05] MEDS: DILTIAZEM 120 MG CAPER PO SCH (09:55)
[2023-03-05] MEDS: PANTOPRAZOLE 40 MG TABEC PO SCH (09:55)
[2023-03-05] MEDS: LOSARTAN 50 MG TAB PO SCH (09:56)
[2023-03-05] MEDS: MEMANTINE 10 MG TAB PO SCH (09:56)
[2023-03-05] MEDS: DIGOXIN 0.125 MG/2.5 ML UDC GT SCH (12:47)
[2023-03-05] MEDS ORDERED: CEFEPIME 1,000 MG VIAL ONE (20:18)
[2023-03-05] MEDS: CEFEPIME 1,000 MG in DEXTROSE 5% 50 ML IV SCH (20:22)
[2023-03-05] MEDS: DONEPEZIL 10 MG TAB PO SCH (20:22)
[2023-03-05] MEDS: APIXABAN 2.5 MG TAB PO SCH (20:36)
[2023-03-06] VITALS (7 sets, daily range): BP systolic 136–157; BP diastolic 62–89; PULSE 69–99; RESP 18–19; TEMP 97.3–98.1; O2SAT 93–98
[2023-03-06 05:47] LABS: BASOPHILS % (AUTO) 0.4 % (0.0-2.0); EOSINOPHILS % (AUTO) 0.5 % (0.0-4.0); HEMATOCRIT 36.4 % (36-48); HEMOGLOBIN 11.9 g/dL (12.0-16.0); LYMPHOCYTES # (AUTO) 0.8 K/uL (2.5-16.5); MEAN CORPUSCULAR HEMOGLOBIN 31 pg (27-31); MEAN CORPUSCULAR HGB CONC 33 g/dL (33-37); MEAN CORPUSCULAR VOLUME 93.2 fL (80-94); MONOCYTES # (AUTO) 0.8 K/uL (0.8-1.0); MONOCYTES % (AUTO) 16.6 % (1.7-9.3); NEUTROPHILS % (AUTO) 64.5 % (42.2-75.2); PLATELET COUNT (AUTO) 189 K/uL (140-450); RED BLOOD CELL COUNT(AUTO) 3.91 MIL/uL (4.20-5.40); RED CELL DISTRIBUTION WIDTH 14.9 % (11.6-13.7); WHITE BLOOD COUNT (AUTO) 4.7 K/uL (4.8-10.8)
[2023-03-06 06:16] LABS: ANION GAP 9.3 (8-16); CALCIUM 8.2 mg/dL (8.5-10.1); CARBON DIOXIDE 30.3 mmol/L (21-32); CHLORIDE 105 mmol/L (98-107); CREATININE 0.8 mg/dL (0.6-1.3); GLUCOSE 96 mg/dL (74-106); POTASSIUM 3.6 mmol/L (3.5-5.1); SODIUM SERUM 141 mmol/L (136-145); UREA NITROGEN, BLOOD 17 mg/dL (7-18)
[2023-03-06] MEDS: FUROSEMIDE 40 MG TAB PO SCH (08:19)
[2023-03-06] MEDS: MEMANTINE 10 MG TAB PO SCH (08:20)
[2023-03-06] MEDS: DILTIAZEM 120 MG CAPER PO SCH (08:20)
[2023-03-06] MEDS: PANTOPRAZOLE 40 MG TABEC PO SCH (08:20)
[2023-03-06] MEDS: LOSARTAN 50 MG TAB PO SCH (08:21)
[2023-03-06] MEDS: APIXABAN 2.5 MG TAB PO SCH ×2 (08:22→21:21)
[2023-03-06] MEDS: DIGOXIN 0.125 MG/2.5 ML UDC GT SCH (08:23)
[2023-03-06] MEDS: CEFEPIME 1,000 MG in DEXTROSE 5% 50 ML IV SCH (08:23)
[2023-03-06] MEDS ORDERED: guaiFENesin 20 MG/ML UDC PO PRN (12:50)
[2023-03-06] MEDS: DONEPEZIL 10 MG TAB PO SCH (21:15)
[2023-03-07] VITALS (7 sets, daily range): BP systolic 113–164; BP diastolic 69–73; PULSE 72–99; RESP 18–20; TEMP 97.1–98; O2SAT 75–99
[2023-03-07] MEDS: LOSARTAN 50 MG TAB PO SCH (10:19)
[2023-03-07] MEDS: FUROSEMIDE 40 MG TAB PO SCH (10:19)
[2023-03-07] MEDS: PANTOPRAZOLE 40 MG TABEC PO SCH (10:20)
[2023-03-07] MEDS: MEMANTINE 10 MG TAB PO SCH (10:20)
[2023-03-07] MEDS: APIXABAN 2.5 MG TAB PO SCH ×2 (10:20→20:57)
[2023-03-07] MEDS: DILTIAZEM 120 MG CAPER PO SCH (10:21)
[2023-03-07] MEDS: DIGOXIN 0.125 MG/2.5 ML UDC GT SCH (10:21)
[2023-03-07] MEDS ORDERED: NIRM1TAB PO (13:36)
[2023-03-07] MEDS: DONEPEZIL 10 MG TAB PO SCH (20:56)
[2023-03-08 04:00] VITALS: BP 156/76; PULSE 77; RESP 18; TEMP 97.6; O2SAT 95
[2023-03-08 07:22] LABS: ANION GAP 9.9 (8-16); CALCIUM 8.3 mg/dL (8.5-10.1); CARBON DIOXIDE 34.5 mmol/L (21-32); CHLORIDE 104 mmol/L (98-107); CREATININE 0.9 mg/dL (0.6-1.3); GLUCOSE 95 mg/dL (74-106); POTASSIUM 3.4 mmol/L (3.5-5.1); SODIUM SERUM 145 mmol/L (136-145); UREA NITROGEN, BLOOD 14 mg/dL (7-18)
[2023-03-08 07:44] LABS: BASOPHILS % (AUTO) 0.7 % (0.0-2.0); EOSINOPHILS # (AUTO) 0.1 K/uL (0-0.4); EOSINOPHILS % (AUTO) 2.2 % (0.0-4.0); HEMATOCRIT 37.5 % (36-48); HEMOGLOBIN 12.3 g/dL (12.0-16.0); LYMPHOCYTES # (AUTO) 0.8 K/uL (2.5-16.5); LYMPHOCYTES % (AUTO) 22.2 % (20.5-51.1); MEAN CORPUSCULAR HEMOGLOBIN 30 pg (27-31); MEAN CORPUSCULAR HGB CONC 33 g/dL (33-37); MEAN CORPUSCULAR VOLUME 92.9 fL (80-94); MONOCYTES # (AUTO) 0.6 K/uL (0.8-1.0); MONOCYTES % (AUTO) 16.9 % (1.7-9.3); NEUTROPHILS # (AUTO) 2.1 K/uL (1.8-7.7); PLATELET COUNT (AUTO) 195 K/uL (140-450); RED BLOOD CELL COUNT(AUTO) 4.03 MIL/uL (4.20-5.40); RED CELL DISTRIBUTION WIDTH 14.8 % (11.6-13.7); WHITE BLOOD COUNT (AUTO) 3.6 K/uL (4.8-10.8)
[2023-03-08 08:00] VITALS: BP 130/64; PULSE 72; PULSE 76; RESP 18; TEMP 97.8; O2SAT 95; O2SAT 97
[2023-03-08] MEDS: DIGOXIN 0.125 MG/2.5 ML UDC GT SCH (10:49)
[2023-03-08] MEDS: DILTIAZEM 120 MG CAPER PO SCH (10:49)
[2023-03-08] MEDS: LOSARTAN 50 MG TAB PO SCH (10:50)
[2023-03-08] MEDS: APIXABAN 2.5 MG TAB PO SCH ×2 (10:51→22:27)
[2023-03-08] MEDS: PANTOPRAZOLE 40 MG TABEC PO SCH (10:52)
[2023-03-08] MEDS: MEMANTINE 10 MG TAB PO SCH (10:53)
[2023-03-08] MEDS: FUROSEMIDE 40 MG TAB PO SCH (10:55)
[2023-03-08 16:00] VITALS: BP 130/54; PULSE 70; RESP 18; TEMP 96.6; O2SAT 97
[2023-03-08 20:00] VITALS: BP 133/80; PULSE 76; RESP 18; TEMP 96.8; O2SAT 94
[2023-03-08] MEDS: DONEPEZIL 10 MG TAB PO SCH (22:21)
[2023-03-09 04:00] VITALS: BP 142/55; PULSE 76; RESP 18; TEMP 96.9; O2SAT 94
[2023-03-09 07:03] LABS: BASOPHILS % (AUTO) 0.7 % (0.0-2.0); EOSINOPHILS % (AUTO) 0.9 % (0.0-4.0); HEMATOCRIT 37.3 % (36-48); HEMOGLOBIN 12.2 g/dL (12.0-16.0); LYMPHOCYTES # (AUTO) 0.8 K/uL (2.5-16.5); LYMPHOCYTES % (AUTO) 17.7 % (20.5-51.1); MEAN CORPUSCULAR HEMOGLOBIN 30 pg (27-31); MEAN CORPUSCULAR HGB CONC 33 g/dL (33-37); MEAN CORPUSCULAR VOLUME 92.8 fL (80-94); MONOCYTES # (AUTO) 0.6 K/uL (0.8-1.0); MONOCYTES % (AUTO) 13.3 % (1.7-9.3); NEUTROPHILS # (AUTO) 3.1 K/uL (1.8-7.7); NEUTROPHILS % (AUTO) 67.4 % (42.2-75.2); PLATELET COUNT (AUTO) 199 K/uL (140-450); RED BLOOD CELL COUNT(AUTO) 4.02 MIL/uL (4.20-5.40); RED CELL DISTRIBUTION WIDTH 14.8 % (11.6-13.7); WHITE BLOOD COUNT (AUTO) 4.7 K/uL (4.8-10.8)
[2023-03-09 07:26] LABS: ALANINE AMINOTRANSFERASE 22 U/L (12-78); ALBUMIN 2.8 g/dL (3.4-5.0); ALKALINE PHOSPHATASE 59 U/L (50-136); ANION GAP 12.9 (8-16); ASPARTATE AMINOTRANSFERASE 36 U/L (15-37); CALCIUM 8.1 mg/dL (8.5-10.1); CARBON DIOXIDE 30.9 mmol/L (21-32); CHLORIDE 104 mmol/L (98-107); CREATININE 1.1 mg/dL (0.6-1.3); GLUCOSE 106 mg/dL (74-106); POTASSIUM 3.8 mmol/L (3.5-5.1); SODIUM SERUM 144 mmol/L (136-145); TOTAL BILIRUBIN 0.7 mg/dL (0.0-1.0); TOTAL PROTEIN, SERUM 7.1 g/dL (6.4-8.2); UREA NITROGEN, BLOOD 13 mg/dL (7-18)
[2023-03-09 08:00] VITALS: BP 162/89; PULSE 90; RESP 19; TEMP 97.1; O2SAT 95
[2023-03-09] MEDS: MEMANTINE 10 MG TAB PO SCH (09:13)
[2023-03-09] MEDS: PANTOPRAZOLE 40 MG TABEC PO SCH (09:14)
[2023-03-09] MEDS: LOSARTAN 50 MG TAB PO SCH (09:14)
[2023-03-09] MEDS: DILTIAZEM 120 MG CAPER PO SCH (09:14)
[2023-03-09] MEDS: DIGOXIN 0.125 MG/2.5 ML UDC GT SCH (09:14)
[2023-03-09] MEDS: FUROSEMIDE 40 MG TAB PO SCH (09:14)
[2023-03-09] MEDS: APIXABAN 2.5 MG TAB PO SCH (09:19)
[2023-03-09 09:20] VITALS: PULSE 90; RESP 19; O2SAT 95
[2023-03-09 12:00] VITALS: BP 133/66; PULSE 86; RESP 18; TEMP 97.3; O2SAT 95
== END 2023-03-09 13:10 | DRG 291 ==
LOC: MED 22:52 → MTU 03-05 04:11
PROVIDERS: ADMIT Student in an Organized Health Care Education/Training Program; ATTEND Student in an Organized Health Care Education/Training Program
DX: I11.0 Hypertensive heart disease with heart failure (principal); I50.33 Acute on chronic diastolic (congestive) heart failure; U07.1 COVID-19; N39.0 Urinary tract infection, site not specified; E44.0 Moderate protein-calorie malnutrition; R06.03 Acute respiratory distress; I16.0 Hypertensive urgency; I48.91 Unspecified atrial fibrillation; F03.90 Unspecified dementia, unspecified severity, without behavioral disturbance, psychotic disturbance, mood disturbance, and anxiety; F41.9 Anxiety disorder, unspecified; Z79.01 Long term (current) use of anticoagulants; Z86.73 Personal history of transient ischemic attack (TIA), and cerebral infarction without residual deficits; Z78.9 Other specified health status; Z88.2 Allergy status to sulfonamides; Z88.8 Allergy status to other drugs, medicaments and biological substances; Z79.899 Other long term (current) drug therapy; Z68.22 Body mass index [BMI] 22.0-22.9, adult
CPT/HCPCS: 36415; 71045; 80048; 80053; 80162; 81001; 83605; 83880; 85025; 87040; 87081; 87086; 93005; 97163-GP; J0692; J0696; J2185; J7060; Q0092

== ENCOUNTER 2023-03-12 00:03 | Inpatient (IN) | payer OTHER, MEDICAID ==
[~2023-03-12] VITALS: Ht 165.1 cm; Wt 75.3 kg
[2023-03-12] VITALS (7 sets, daily range): BP systolic 124–161; BP diastolic 45–78; PULSE 69–97; RESP 16–18; TEMP 97.1–98.4; O2SAT 97–99
[~2023-03-12 00:03] MED LIST changes: +NIRM1TAB PO; -[UNRECOGNIZED DRUG - CODE] PO
[2023-03-12 01:04] LABS: BASOPHILS % (AUTO) 0.9 % (0.0-2.0); EOSINOPHILS # (AUTO) 0.1 K/uL (0-0.4); EOSINOPHILS % (AUTO) 3.5 % (0.0-4.0); HEMOGLOBIN 12.4 g/dL (12.0-16.0); LYMPHOCYTES # (AUTO) 1.1 K/uL (2.5-16.5); LYMPHOCYTES % (AUTO) 28.1 % (20.5-51.1); MEAN CORPUSCULAR HEMOGLOBIN 31 pg (27-31); MEAN CORPUSCULAR HGB CONC 33 g/dL (33-37); MEAN CORPUSCULAR VOLUME 93.3 fL (80-94); MONOCYTES # (AUTO) 0.4 K/uL (0.8-1.0); NEUTROPHILS # (AUTO) 2.2 K/uL (1.8-7.7); NEUTROPHILS % (AUTO) 57.5 % (42.2-75.2); PLATELET COUNT (AUTO) 227 K/uL (140-450); RED BLOOD CELL COUNT(AUTO) 4.07 MIL/uL (4.20-5.40); RED CELL DISTRIBUTION WIDTH 15.1 % (11.6-13.7); WHITE BLOOD COUNT (AUTO) 3.8 K/uL (4.8-10.8)
[2023-03-12 01:23] LABS: ALANINE AMINOTRANSFERASE 21 U/L (12-78); ALKALINE PHOSPHATASE 63 U/L (50-136); ANION GAP 9.5 (8-16); ASPARTATE AMINOTRANSFERASE 28 U/L (15-37); CALCIUM 8.7 mg/dL (8.5-10.1); CARBON DIOXIDE 33.3 mmol/L (21-32); CHLORIDE 105 mmol/L (98-107); CREATININE 1.1 mg/dL (0.6-1.3); GLUCOSE 91 mg/dL (74-106); POTASSIUM 3.8 mmol/L (3.5-5.1); SODIUM SERUM 144 mmol/L (136-145); TOTAL BILIRUBIN 0.4 mg/dL (0.0-1.0); TOTAL PROTEIN, SERUM 7.5 g/dL (6.4-8.2); UREA NITROGEN, BLOOD 19 mg/dL (7-18)
[2023-03-12 01:26] LABS: LACTIC ACID 0.8 mmol/L (0.4-2.0)
[2023-03-12 01:34] LABS: CREATINE KINASE, TOTAL 68 U/L (26-192)
[2023-03-12 01:52] LABS: FLU A ANTIGEN negative (NEGATIVE); FLU B ANTIGEN NEGATIVE (NEGATIVE)
[2023-03-12 02:35] LABS: INR 1.11 (0.8-1.2); PARTIAL THROMBOPLASTIN TIME 31.3 secs (22-35.6); PROTHROMBIN TIME 11.5 secs (10.8-13.4)
[2023-03-12] MEDS ORDERED: METO-624 PO (02:42)
[2023-03-12] MEDS ORDERED: LINA145C PO (02:42)
[2023-03-12] MEDS ORDERED: BUME1TAB92 PO (02:42)
[2023-03-12] MEDS ORDERED: DONE10TA10 PO (02:42)
[2023-03-12] MEDS ORDERED: FOS70 PO (02:44)
[2023-03-12 03:18] LABS: APPEARANCE,URINE CLEAR (CLEAR); BILIRUBIN,URINE NEGATIVE (NEGATIVE); BLOOD, URINE NEGATIVE (NEGATIVE); COLOR,URINE YELLOW (YELLOW); LEUKOCYTE ESTERASE ,URINE NEGATIVE (NEGATIVE); NITRITE, URINE NEGATIVE (NEGATIVE); PH,URINE 5.5 (5.0-9.0); PROTEIN,URINE NEGATIVE (NEGATIVE); UGLUCOSE NEGATIVE (NEGATIVE); UROBILINOGEN,URINE 0.2 EU/dL (0.2 - 1)
[2023-03-12] MEDS ORDERED: FUROSEMIDE 40 MG/4 ML VIAL IVP SCH (03:45)
[2023-03-12] MEDS ORDERED: DOCUSATE SODIUM 100 MG GELCAP PO PRN ×3 (04:35→07:05)
[2023-03-12] MEDS ORDERED: POTASSIUM CHLORIDE 10 MEQ TABER PO PRN ×3 (04:35→07:05)
[2023-03-12] MEDS ORDERED: ONDANSETRON 4 MG/2 ML VIAL IM/IVP PRN ×2 (04:35→04:45)
[2023-03-12] MEDS ORDERED: ACETAMINOPHEN 325 MG TAB PO PRN ×3 (04:35→07:05)
[2023-03-12] MEDS ORDERED: guaiFENesin DM 200/20 MG-10 ML 10 ML UDC PO PRN ×2 (04:35→04:45)
[2023-03-12] MEDS ORDERED: ZOLPIDEM 5 MG TAB PO PRN ×2 (04:35→04:45)
[2023-03-12] MEDS ORDERED: HYDROcodone/APAP 7.5/325 MG 1 TAB PO PRN ×2 (04:35→04:45)
[2023-03-12] MEDS ORDERED: ZOLPIDEM 10 MG TAB PO PRN (07:05)
[2023-03-12] MEDS ORDERED: MAG SULF 2000 MG/WATER PREMIX 50 ML IV PRN (07:05)
[2023-03-12] MEDS ORDERED: MORPHINE SULFATE 2 MG/ML SYR IVP PRN (07:05)
[2023-03-12] MEDS ORDERED: PANTOPRAZOLE 40 MG TABEC PO SCH (09:00)
[2023-03-12] MEDS: PANTOPRAZOLE 40 MG TABEC PO SCH (09:21)
[2023-03-12] MEDS: DILTIAZEM 120 MG CAPER PO SCH (17:21)
[2023-03-12] MEDS: BUMETANIDE 1 MG/4 ML VIAL IV SCH (17:21)
[2023-03-12] MEDS: LOSARTAN 50 MG TAB PO SCH (17:21)
[2023-03-13] VITALS (8 sets, daily range): BP systolic 125–142; BP diastolic 55–67; PULSE 70–83; RESP 16–20; TEMP 97–98.2; O2SAT 92–99
[2023-03-13 05:54] LABS: BASOPHILS % (AUTO) 0.9 % (0.0-2.0); EOSINOPHILS # (AUTO) 0.1 K/uL (0-0.4); EOSINOPHILS % (AUTO) 1.9 % (0.0-4.0); HEMATOCRIT 36.4 % (36-48); HEMOGLOBIN 11.8 g/dL (12.0-16.0); LYMPHOCYTES # (AUTO) 0.9 K/uL (2.5-16.5); LYMPHOCYTES % (AUTO) 19.5 % (20.5-51.1); MEAN CORPUSCULAR HEMOGLOBIN 30 pg (27-31); MEAN CORPUSCULAR HGB CONC 32 g/dL (33-37); MEAN CORPUSCULAR VOLUME 93.2 fL (80-94); MONOCYTES # (AUTO) 0.4 K/uL (0.8-1.0); MONOCYTES % (AUTO) 8.5 % (1.7-9.3); NEUTROPHILS # (AUTO) 3.1 K/uL (1.8-7.7); NEUTROPHILS % (AUTO) 69.2 % (42.2-75.2); PLATELET COUNT (AUTO) 233 K/uL (140-450); RED BLOOD CELL COUNT(AUTO) 3.91 MIL/uL (4.20-5.40); RED CELL DISTRIBUTION WIDTH 14.4 % (11.6-13.7); WHITE BLOOD COUNT (AUTO) 4.5 K/uL (4.8-10.8)
[2023-03-13 06:53] LABS: ALANINE AMINOTRANSFERASE 20 U/L (12-78); ALKALINE PHOSPHATASE 61 U/L (50-136); ANION GAP 10.9 (8-16); ASPARTATE AMINOTRANSFERASE 26 U/L (15-37); CALCIUM 8.6 mg/dL (8.5-10.1); CARBON DIOXIDE 32.7 mmol/L (21-32); CHLORIDE 105 mmol/L (98-107); CREATININE 1.1 mg/dL (0.6-1.3); GLUCOSE 106 mg/dL (74-106); POTASSIUM 3.6 mmol/L (3.5-5.1); SODIUM SERUM 145 mmol/L (136-145); TOTAL BILIRUBIN 0.6 mg/dL (0.0-1.0); TOTAL PROTEIN, SERUM 7.4 g/dL (6.4-8.2); UREA NITROGEN, BLOOD 19 mg/dL (7-18)
[2023-03-13] MEDS: DILTIAZEM 120 MG CAPER PO SCH (09:42)
[2023-03-13] MEDS: BUMETANIDE 1 MG/4 ML VIAL IV SCH (09:43)
[2023-03-13] MEDS: LOSARTAN 50 MG TAB PO SCH (09:43)
[2023-03-13] MEDS: PANTOPRAZOLE 40 MG TABEC PO SCH (09:43)
[2023-03-14 07:30] LABS: BASOPHILS % (AUTO) 1.2 % (0.0-2.0); EOSINOPHILS # (AUTO) 0.1 K/uL (0-0.4); EOSINOPHILS % (AUTO) 2.4 % (0.0-4.0); HEMATOCRIT 36.5 % (36-48); LYMPHOCYTES % (AUTO) 26.4 % (20.5-51.1); MEAN CORPUSCULAR HEMOGLOBIN 30 pg (27-31); MEAN CORPUSCULAR HGB CONC 33 g/dL (33-37); MEAN CORPUSCULAR VOLUME 92.5 fL (80-94); MONOCYTES # (AUTO) 0.4 K/uL (0.8-1.0); MONOCYTES % (AUTO) 11.6 % (1.7-9.3); NEUTROPHILS # (AUTO) 2.1 K/uL (1.8-7.7); NEUTROPHILS % (AUTO) 58.4 % (42.2-75.2); PLATELET COUNT (AUTO) 233 K/uL (140-450); RED BLOOD CELL COUNT(AUTO) 3.94 MIL/uL (4.20-5.40); RED CELL DISTRIBUTION WIDTH 14.5 % (11.6-13.7); WHITE BLOOD COUNT (AUTO) 3.7 K/uL (4.8-10.8)
[2023-03-14 07:48] LABS: ALANINE AMINOTRANSFERASE 18 U/L (12-78); ALBUMIN 2.9 g/dL (3.4-5.0); ALKALINE PHOSPHATASE 63 U/L (50-136); ANION GAP 12.6 (8-16); ASPARTATE AMINOTRANSFERASE 25 U/L (15-37); CALCIUM 8.7 mg/dL (8.5-10.1); CARBON DIOXIDE 32.1 mmol/L (21-32); CHLORIDE 104 mmol/L (98-107); CREATININE 1.2 mg/dL (0.6-1.3); GLUCOSE 107 mg/dL (74-106); POTASSIUM 3.7 mmol/L (3.5-5.1); SODIUM SERUM 145 mmol/L (136-145); TOTAL BILIRUBIN 0.6 mg/dL (0.0-1.0); TOTAL PROTEIN, SERUM 7.3 g/dL (6.4-8.2); UREA NITROGEN, BLOOD 22 mg/dL (7-18)
[2023-03-14 07:52] VITALS: RESP 20; O2SAT 99
[2023-03-14 07:53] VITALS: PULSE 73; RESP 19; O2SAT 99
[2023-03-14 08:00] VITALS: BP 135/72; PULSE 70; RESP 16; TEMP 98.2; O2SAT 98
[2023-03-14] MEDS: DILTIAZEM 120 MG CAPER PO SCH (09:00)
[2023-03-14] MEDS: LOSARTAN 50 MG TAB PO SCH (09:00)
[2023-03-14] MEDS: BUMETANIDE 1 MG/4 ML VIAL IV SCH (09:00)
[2023-03-14] MEDS: PANTOPRAZOLE 40 MG TABEC PO SCH (09:00)
[2023-03-14 12:33] VITALS: BP 135/72; PULSE 70; RESP 16; TEMP 98.2
== END 2023-03-14 13:50 | disposition home or self-care (01) | DRG 291 ==
LOC: MED 00:03 → MTU 04:40 → MED 04:56 → MTU 06:07
PROVIDERS: ADMIT Student in an Organized Health Care Education/Training Program; ATTEND Student in an Organized Health Care Education/Training Program
DX: I13.0 Hypertensive heart and chronic kidney disease with heart failure and stage 1 through stage 4 chronic kidney disease, or unspecified chronic kidney disease (principal); I50.33 Acute on chronic diastolic (congestive) heart failure; G30.9 Alzheimer's disease, unspecified; F02.A0 Dementia in other diseases classified elsewhere, mild, without behavioral disturbance, psychotic disturbance, mood disturbance, and anxiety; I48.91 Unspecified atrial fibrillation; N18.9 Chronic kidney disease, unspecified; E11.22 Type 2 diabetes mellitus with diabetic chronic kidney disease; K21.9 Gastro-esophageal reflux disease without esophagitis; Z20.822 Contact with and (suspected) exposure to COVID-19; Z66 Do not resuscitate; Z95.0 Presence of cardiac pacemaker; Z86.73 Personal history of transient ischemic attack (TIA), and cerebral infarction without residual deficits; Z86.718 Personal history of other venous thrombosis and embolism; Z88.1 Allergy status to other antibiotic agents; Z88.2 Allergy status to sulfonamides; Z88.8 Allergy status to other drugs, medicaments and biological substances; Z79.899 Other long term (current) drug therapy
CPT/HCPCS: 36415; 71045; 80053; 80162; 81003; 82550; 82553; 83605; 83880; 84484; 85025; 85610; 85730; 87040; 87081; 87086; 93005; 97112; 97116; 97530; 99285; J1644; J3490; Q0092

== ENCOUNTER 2023-03-27 23:15 | Emergency (ER) | payer OTHER, MEDICAID ==
[~2023-03-27] VITALS: Ht 162.6 cm; Wt 63.5 kg
[~2023-03-27 23:15] MED LIST changes: +BUME1TAB92 PO; -DILT120C91 PO; +DONE10TA10 PO; +FOS70 PO; +LINA145C PO; -NIRM1TAB PO
[2023-03-27 23:22] VITALS: BP 142/78; PULSE 76; RESP 16; TEMP 98.4; O2SAT 98
[2023-03-28 01:50] VITALS: BP 142/78; PULSE 76; RESP 16; TEMP 98.4; O2SAT 98
== END 2023-03-28 01:50 | disposition home or self-care (01) ==
LOC: MED 23:15
DX: H92.03 Otalgia, bilateral (principal); I11.9 Hypertensive heart disease without heart failure; E11.9 Type 2 diabetes mellitus without complications; F03.90 Unspecified dementia, unspecified severity, without behavioral disturbance, psychotic disturbance, mood disturbance, and anxiety; Z86.73 Personal history of transient ischemic attack (TIA), and cerebral infarction without residual deficits; Z88.2 Allergy status to sulfonamides; Z88.8 Allergy status to other drugs, medicaments and biological substances; Z79.899 Other long term (current) drug therapy; Z90.89 Acquired absence of other organs; Z90.710 Acquired absence of both cervix and uterus
CPT/HCPCS: 99283

== ENCOUNTER 2023-04-14 23:08 | Inpatient (IN) | payer OTHER, MEDICAID ==
[~2023-04-14] VITALS: Ht 165.1 cm; Wt 75.4 kg
[2023-04-14 23:09] VITALS: BP 188/90; PULSE 90; RESP 17; TEMP 97.6; O2SAT 99
[2023-04-14 23:50] LABS: BASOPHILS # (AUTO) 0.1 K/uL (0.00-0.22); BASOPHILS % (AUTO) 1.4 % (0.0-2.0); EOSINOPHILS # (AUTO) 0.2 K/uL (0-0.4); EOSINOPHILS % (AUTO) 2.9 % (0.0-4.0); HEMATOCRIT 34.7 % (36-48); HEMOGLOBIN 11.8 g/dL (12.0-16.0); LYMPHOCYTES # (AUTO) 0.8 K/uL (2.5-16.5); MEAN CORPUSCULAR HEMOGLOBIN 32 pg (27-31); MEAN CORPUSCULAR HGB CONC 34 g/dL (33-37); MEAN CORPUSCULAR VOLUME 92.8 fL (80-94); MONOCYTES # (AUTO) 0.5 K/uL (0.8-1.0); MONOCYTES % (AUTO) 9.9 % (1.7-9.3); NEUTROPHILS # (AUTO) 3.6 K/uL (1.8-7.7); NEUTROPHILS % (AUTO) 69.8 % (42.2-75.2); PLATELET COUNT (AUTO) 181 K/uL (140-450); RED BLOOD CELL COUNT(AUTO) 3.74 MIL/uL (4.20-5.40); RED CELL DISTRIBUTION WIDTH 15.6 % (11.6-13.7); WHITE BLOOD COUNT (AUTO) 5.2 K/uL (4.8-10.8)
[2023-04-14 23:58] LABS: ANION GAP 6.9 (8-16); CARBON DIOXIDE 35.6 mmol/L (21-32); CHLORIDE 103 mmol/L (98-107); GLUCOSE 108 mg/dL (74-106); POTASSIUM 3.5 mmol/L (3.5-5.1); SODIUM SERUM 142 mmol/L (136-145); UREA NITROGEN, BLOOD 19 mg/dL (7-18)
[2023-04-15] VITALS (7 sets, daily range): BP systolic 137–182; BP diastolic 62–71; PULSE 70–78; RESP 16–20; TEMP 96.8–97.8; O2SAT 94–100
[2023-04-15 00:05] LABS: INR 1.11 (0.8-1.2); PARTIAL THROMBOPLASTIN TIME 31.7 secs (22-35.6); PROTHROMBIN TIME 11.5 secs (10.8-13.4)
[2023-04-15 02:28] LABS: APPEARANCE,URINE CLEAR (CLEAR); BILIRUBIN,URINE NEGATIVE (NEGATIVE); BLOOD, URINE NEGATIVE (NEGATIVE); COLOR,URINE YELLOW (YELLOW); LEUKOCYTE ESTERASE ,URINE NEGATIVE (NEGATIVE); NITRITE, URINE NEGATIVE (NEGATIVE); PROTEIN,URINE NEGATIVE (NEGATIVE); UGLUCOSE NEGATIVE (NEGATIVE); UROBILINOGEN,URINE 0.2 EU/dL (0.2 - 1)
[2023-04-15] MEDS: DONEPEZIL 10 MG TAB PO SCH (09:43)
[2023-04-15] MEDS: APIXABAN 2.5 MG TAB PO SCH (09:49)
[2023-04-15] MEDS: LOSARTAN 50 MG TAB PO SCH (09:49)
[2023-04-15] MEDS: DIGOXIN 0.125 MG TAB PO SCH (09:49)
[2023-04-15] MEDS: FUROSEMIDE 20 MG/2 ML VIAL IVP SCH (09:50)
[2023-04-15] MEDS ORDERED: NITROGLYCERIN 0.4 MG TAB SL PRN (10:25)
[2023-04-15 14:00] LABS: BASOPHILS % (AUTO) 0.6 % (0.0-2.0); EOSINOPHILS # (AUTO) 0.1 K/uL (0-0.4); EOSINOPHILS % (AUTO) 1.8 % (0.0-4.0); HEMATOCRIT 34.8 % (36-48); HEMOGLOBIN 11.5 g/dL (12.0-16.0); LYMPHOCYTES # (AUTO) 0.6 K/uL (2.5-16.5); LYMPHOCYTES % (AUTO) 11.8 % (20.5-51.1); MEAN CORPUSCULAR HEMOGLOBIN 31 pg (27-31); MEAN CORPUSCULAR HGB CONC 33 g/dL (33-37); MONOCYTES # (AUTO) 0.4 K/uL (0.8-1.0); MONOCYTES % (AUTO) 8.8 % (1.7-9.3); NEUTROPHILS # (AUTO) 3.6 K/uL (1.8-7.7); PLATELET COUNT (AUTO) 181 K/uL (140-450); RED BLOOD CELL COUNT(AUTO) 3.74 MIL/uL (4.20-5.40); RED CELL DISTRIBUTION WIDTH 15.6 % (11.6-13.7); WHITE BLOOD COUNT (AUTO) 4.7 K/uL (4.8-10.8)
[2023-04-15 14:24] LABS: ANION GAP 8.7 (8-16); CARBON DIOXIDE 34.7 mmol/L (21-32); CHLORIDE 103 mmol/L (98-107); GLUCOSE 91 mg/dL (74-106); POTASSIUM 3.4 mmol/L (3.5-5.1); SODIUM SERUM 143 mmol/L (136-145); UREA NITROGEN, BLOOD 19 mg/dL (7-18)
[2023-04-16] VITALS (7 sets, daily range): BP systolic 117–169; BP diastolic 54–76; PULSE 70–73; RESP 18–20; TEMP 96.8–97.7; O2SAT 96–100
[2023-04-16 06:09] LABS: BASOPHILS % (AUTO) 0.8 % (0.0-2.0); EOSINOPHILS # (AUTO) 0.1 K/uL (0-0.4); EOSINOPHILS % (AUTO) 2.7 % (0.0-4.0); HEMATOCRIT 34.4 % (36-48); HEMOGLOBIN 11.5 g/dL (12.0-16.0); LYMPHOCYTES # (AUTO) 0.5 K/uL (2.5-16.5); LYMPHOCYTES % (AUTO) 11.6 % (20.5-51.1); MEAN CORPUSCULAR HEMOGLOBIN 31 pg (27-31); MEAN CORPUSCULAR HGB CONC 33 g/dL (33-37); MONOCYTES # (AUTO) 0.5 K/uL (0.8-1.0); MONOCYTES % (AUTO) 10.6 % (1.7-9.3); NEUTROPHILS # (AUTO) 3.3 K/uL (1.8-7.7); NEUTROPHILS % (AUTO) 74.3 % (42.2-75.2); PLATELET COUNT (AUTO) 173 K/uL (140-450); RED CELL DISTRIBUTION WIDTH 15.4 % (11.6-13.7); WHITE BLOOD COUNT (AUTO) 4.4 K/uL (4.8-10.8)
[2023-04-16 06:36] LABS: ALANINE AMINOTRANSFERASE 10 U/L (12-78); ALBUMIN 2.1 g/dL (3.4-5.0); ALKALINE PHOSPHATASE 56 U/L (50-136); ANION GAP 6.5 (8-16); ASPARTATE AMINOTRANSFERASE 19 U/L (15-37); CALCIUM 8.1 mg/dL (8.5-10.1); CARBON DIOXIDE 35.9 mmol/L (21-32); CHLORIDE 104 mmol/L (98-107); CREATININE 0.8 mg/dL (0.6-1.3); GLUCOSE 103 mg/dL (74-106); POTASSIUM 3.4 mmol/L (3.5-5.1); SODIUM SERUM 143 mmol/L (136-145); TOTAL BILIRUBIN 0.6 mg/dL (0.0-1.0); TOTAL PROTEIN, SERUM 7.1 g/dL (6.4-8.2); UREA NITROGEN, BLOOD 15 mg/dL (7-18)
[2023-04-16] MEDS: ASPIRIN 81 MG TAB.CHEW PO SCH (09:49)
[2023-04-16] MEDS: POTASSIUM CHLORIDE 10 MEQ TABER PO SCH (09:53)
[2023-05-18] MEDS ORDERED: [UNRECOGNIZED DRUG - CODE] TP (20:31)
[2023-05-18] MEDS ORDERED: ALBU0.0912 IH (20:31)
[2023-05-18] MEDS ORDERED: BISA5TAB79 PO (20:31)
[2023-05-22] MEDS ORDERED: [UNRECOGNIZED DRUG - CODE] NS (14:33)
== END 2023-04-16 13:30 | disposition home or self-care (01) | DRG 189 ==
LOC: MED 23:08 → MTU 04-15 03:07
PROVIDERS: ADMIT Student in an Organized Health Care Education/Training Program; ATTEND Student in an Organized Health Care Education/Training Program
DX: J96.01 Acute respiratory failure with hypoxia (principal); I24.89 Other forms of acute ischemic heart disease; E11.9 Type 2 diabetes mellitus without complications; I10 Essential (primary) hypertension; F03.90 Unspecified dementia, unspecified severity, without behavioral disturbance, psychotic disturbance, mood disturbance, and anxiety; F32.A Depression, unspecified; I48.91 Unspecified atrial fibrillation; D64.9 Anemia, unspecified; Z88.2 Allergy status to sulfonamides; Z88.8 Allergy status to other drugs, medicaments and biological substances; Z79.899 Other long term (current) drug therapy; Z95.0 Presence of cardiac pacemaker
CPT/HCPCS: 36415; 71045; 80048; 80053; 80162; 81003; 84484; 85025; 85610; 85730; 87081; 93005; 99285; J1940; Q0092

== ENCOUNTER 2023-05-06 20:01 | Inpatient (IN) | payer OTHER, MEDICAID ==
[~2023-05-06] VITALS: Ht 162.6 cm; Wt 72.6 kg
[~2023-05-06 20:01] MED LIST changes: -FLAX10002 PO; -FURO-572 PO; -MIRABULK PO; -SENN-72 PO
[2023-05-06 20:08] VITALS: BP 144/84; PULSE 74; RESP 15; TEMP 98.2; O2SAT 98
[2023-05-06] MEDS: ALBUTEROL 0.083% 2.5 MG/3 ML NEBU INH ONE (21:10)
[2023-05-06] MEDS: IPRATROPIUM 0.02% 0.5 MG/2.5 ML NEBU INH ONE (21:10)
[2023-05-06 21:11] VITALS: PULSE 70; RESP 16; O2SAT 99
[2023-05-06 21:31] LABS: BASOPHILS % (AUTO) 0.7 % (0.0-2.0); EOSINOPHILS # (AUTO) 0.1 K/uL (0-0.4); EOSINOPHILS % (AUTO) 1.7 % (0.0-4.0); HEMATOCRIT 35.8 % (36-48); HEMOGLOBIN 11.8 g/dL (12.0-16.0); LYMPHOCYTES # (AUTO) 0.7 K/uL (2.5-16.5); LYMPHOCYTES % (AUTO) 17.5 % (20.5-51.1); MEAN CORPUSCULAR HEMOGLOBIN 30 pg (27-31); MEAN CORPUSCULAR HGB CONC 33 g/dL (33-37); MEAN CORPUSCULAR VOLUME 91.6 fL (80-94); MONOCYTES # (AUTO) 0.4 K/uL (0.8-1.0); MONOCYTES % (AUTO) 9.4 % (1.7-9.3); NEUTROPHILS # (AUTO) 2.7 K/uL (1.8-7.7); NEUTROPHILS % (AUTO) 70.7 % (42.2-75.2); PLATELET COUNT (AUTO) 284 K/uL (140-450); RED BLOOD CELL COUNT(AUTO) 3.91 MIL/uL (4.20-5.40); RED CELL DISTRIBUTION WIDTH 15.1 % (11.6-13.7); WHITE BLOOD COUNT (AUTO) 3.8 K/uL (4.8-10.8)
[2023-05-06 21:43] LABS: ANION GAP 5.5 (8-16); CALCIUM 8.7 mg/dL (8.5-10.1); CHLORIDE 101 mmol/L (98-107); GLUCOSE 96 mg/dL (74-106); POTASSIUM 3.5 mmol/L (3.5-5.1); SODIUM SERUM 139 mmol/L (136-145); UREA NITROGEN, BLOOD 15 mg/dL (7-18)
[2023-05-06 21:45] LABS: INR 1.09 (0.8-1.2); PARTIAL THROMBOPLASTIN TIME 30.5 secs (22-35.6); PROTHROMBIN TIME 11.4 secs (10.8-13.4)
[2023-05-06] MEDS: ASPIRIN 325 MG TAB PO ONE (22:34)
[2023-05-07] VITALS (8 sets, daily range): BP systolic 151–163; BP diastolic 61–62; PULSE 69–98; RESP 13–20; TEMP 96.3–97.1; O2SAT 88–100
[2023-05-07] MEDS ORDERED: HYDROcodone/APAP 7.5/325 MG 1 TAB PO PRN (01:25)
[2023-05-07] MEDS ORDERED: ONDANSETRON 4 MG/2 ML VIAL IM/IVP PRN (01:25)
[2023-05-07] MEDS ORDERED: DOCUSATE SODIUM 100 MG GELCAP PO PRN (01:25)
[2023-05-07] MEDS ORDERED: ACETAMINOPHEN 325 MG TAB PO PRN (01:25)
[2023-05-07] MEDS ORDERED: ALBUTEROL SULFATE/IPRATROPIU 3 ML SOL IH PRN (01:35)
[2023-05-07] MEDS: ZOLPIDEM 5 MG TAB PO PRN (02:30)
[2023-05-07] MEDS: guaiFENesin DM 200/20 MG-10 ML 10 ML UDC PO PRN (02:33)
[2023-05-07 04:47] LABS: BASOPHILS % (AUTO) 0.7 % (0.0-2.0); EOSINOPHILS % (AUTO) 1.1 % (0.0-4.0); HEMATOCRIT 34.3 % (36-48); HEMOGLOBIN 11.4 g/dL (12.0-16.0); LYMPHOCYTES # (AUTO) 0.7 K/uL (2.5-16.5); LYMPHOCYTES % (AUTO) 19.6 % (20.5-51.1); MEAN CORPUSCULAR HEMOGLOBIN 30 pg (27-31); MEAN CORPUSCULAR HGB CONC 33 g/dL (33-37); MEAN CORPUSCULAR VOLUME 91.2 fL (80-94); MONOCYTES # (AUTO) 0.4 K/uL (0.8-1.0); MONOCYTES % (AUTO) 10.3 % (1.7-9.3); NEUTROPHILS # (AUTO) 2.6 K/uL (1.8-7.7); NEUTROPHILS % (AUTO) 68.3 % (42.2-75.2); PLATELET COUNT (AUTO) 259 K/uL (140-450); RED BLOOD CELL COUNT(AUTO) 3.77 MIL/uL (4.20-5.40); RED CELL DISTRIBUTION WIDTH 15.1 % (11.6-13.7); WHITE BLOOD COUNT (AUTO) 3.8 K/uL (4.8-10.8)
[2023-05-07 05:40] LABS: ALANINE AMINOTRANSFERASE 11 U/L (12-78); ALBUMIN 2.2 g/dL (3.4-5.0); ALKALINE PHOSPHATASE 61 U/L (50-136); ASPARTATE AMINOTRANSFERASE 21 U/L (15-37); CALCIUM 8.6 mg/dL (8.5-10.1); CARBON DIOXIDE 36.2 mmol/L (21-32); CHLORIDE 103 mmol/L (98-107); GLUCOSE 96 mg/dL (74-106); PHOSPHORUS 3.4 mg/dL (2.5-4.9); POTASSIUM 3.2 mmol/L (3.5-5.1); SODIUM SERUM 140 mmol/L (136-145); TOTAL BILIRUBIN 0.2 mg/dL (0.0-1.0); UREA NITROGEN, BLOOD 17 mg/dL (7-18)
[2023-05-07 05:41] LABS: MAGNESIUM 1.9 mg/dL (1.8-2.4)
[2023-05-07] MEDS: ALBUTEROL SULFATE/IPRATROPIU 3 ML SOL IH SCH (07:31)
[2023-05-07] MEDS: hydrALAZINE 20 MG/ML VIAL IVP PRN (08:35)
[2023-05-07] MEDS: BUMETANIDE 1 MG TAB PO SCH (09:00)
[2023-05-07] MEDS: DONEPEZIL 10 MG TAB PO SCH (10:18)
[2023-05-07] MEDS: DILTIAZEM 120 MG CAPER PO SCH (10:19)
[2023-05-07] MEDS: LOSARTAN 50 MG TAB PO SCH (10:19)
[2023-05-07] MEDS: DIGOXIN 0.125 MG TAB PO SCH (10:20)
[2023-05-07] MEDS: MEMANTINE 10 MG TAB PO SCH (10:21)
[2023-05-07] MEDS: PANTOPRAZOLE 40 MG TABEC PO SCH (10:21)
[2023-05-07] MEDS: APIXABAN 2.5 MG TAB PO SCH (10:27)
[2023-05-07] MEDS: hydrALAZINE 25 MG TAB PO SCH (14:49)
[2023-05-07] MEDS: POTASSIUM CHLORIDE 10 MEQ TABER PO PRN (20:33)
[2023-05-07] MEDS: LEVOFLOXACIN 500 MG/D5W PREMIX 100 ML IV SCH (23:29)
[2023-05-08] VITALS (9 sets, daily range): BP systolic 121–173; BP diastolic 52–70; PULSE 66–118; RESP 18–78; TEMP 97.4–98.3; O2SAT 93–100
[2023-05-08 05:43] LABS: BASOPHILS % (AUTO) 0.5 % (0.0-2.0); EOSINOPHILS % (AUTO) 0.8 % (0.0-4.0); HEMATOCRIT 36.3 % (36-48); LYMPHOCYTES # (AUTO) 0.5 K/uL (2.5-16.5); LYMPHOCYTES % (AUTO) 8.5 % (20.5-51.1); MEAN CORPUSCULAR HEMOGLOBIN 30 pg (27-31); MEAN CORPUSCULAR HGB CONC 33 g/dL (33-37); MEAN CORPUSCULAR VOLUME 90.4 fL (80-94); MONOCYTES # (AUTO) 0.6 K/uL (0.8-1.0); MONOCYTES % (AUTO) 9.6 % (1.7-9.3); NEUTROPHILS # (AUTO) 4.8 K/uL (1.8-7.7); NEUTROPHILS % (AUTO) 80.6 % (42.2-75.2); PLATELET COUNT (AUTO) 280 K/uL (140-450); RED BLOOD CELL COUNT(AUTO) 4.01 MIL/uL (4.20-5.40); RED CELL DISTRIBUTION WIDTH 15.7 % (11.6-13.7)
[2023-05-08 05:53] LABS: ALANINE AMINOTRANSFERASE 14 U/L (12-78); ALBUMIN 2.4 g/dL (3.4-5.0); ALKALINE PHOSPHATASE 67 U/L (50-136); ANION GAP 8.5 (8-16); ASPARTATE AMINOTRANSFERASE 24 U/L (15-37); CALCIUM 8.6 mg/dL (8.5-10.1); CARBON DIOXIDE 33.2 mmol/L (21-32); CHLORIDE 103 mmol/L (98-107); CREATININE 0.9 mg/dL (0.6-1.3); GLUCOSE 84 mg/dL (74-106); POTASSIUM 3.7 mmol/L (3.5-5.1); SODIUM SERUM 141 mmol/L (136-145); TOTAL BILIRUBIN 0.4 mg/dL (0.0-1.0); TOTAL PROTEIN, SERUM 8.5 g/dL (6.4-8.2); UREA NITROGEN, BLOOD 14 mg/dL (7-18)
[2023-05-08] MEDS ORDERED: diphenhydrAMINE 50 MG/ML VIAL IVP SCH (10:16)
[2023-05-08] MEDS ORDERED: HYDR-4420 PO (13:27)
[2023-05-18] MEDS ORDERED: BISA5TAB79 PO (20:31)
[2023-05-18] MEDS ORDERED: ALBU0.0912 IH (20:31)
[2023-05-18] MEDS ORDERED: [UNRECOGNIZED DRUG - CODE] TP (20:31)
[2023-05-22] MEDS ORDERED: [UNRECOGNIZED DRUG - CODE] NS (14:33)
== END 2023-05-08 18:50 | disposition home or self-care (01) | DRG 189 ==
LOC: MED 20:01 → MTU 05-07 01:24
PROVIDERS: ADMIT Student in an Organized Health Care Education/Training Program; ATTEND Student in an Organized Health Care Education/Training Program
DX: J96.00 Acute respiratory failure, unspecified whether with hypoxia or hypercapnia (principal); I21.A1 Myocardial infarction type 2; E43 Unspecified severe protein-calorie malnutrition; I48.20 Chronic atrial fibrillation, unspecified; E78.5 Hyperlipidemia, unspecified; Z68.27 Body mass index [BMI] 27.0-27.9, adult; I11.0 Hypertensive heart disease with heart failure; I50.9 Heart failure, unspecified; Z95.0 Presence of cardiac pacemaker; D64.9 Anemia, unspecified; Z88.8 Allergy status to other drugs, medicaments and biological substances; Z88.2 Allergy status to sulfonamides
CPT/HCPCS: 36415; 71045; 80048; 80053; 83735; 83880; 84100; 84484; 85025; 85610; 85730; 87081; 93005; 94640; 96374; 99285; J0360; J1200; J1956; J7613; J7644